=== PATIENT | male | born 2000 | race American Indian/Alaskan Native ===

== ENCOUNTER 2020-09-22 11:32 | Emergency (ER) | payer OTHER ==
[2020-09-22] MEDS ORDERED: SODIUM CHLORIDE 0.9% 1000 ML 1,000 ML IV ONE ×2 (11:45→15:29)
[2020-09-22] MEDS ORDERED: ONDANSETRON 4 MG/2 ML INJ IV ONE (11:45)
--- NOTE | 2020-09-22 12:24 | Emergency Department Report ---
ED General Adult HPI - General Chief complaint: Nausea/Vomiting/Diarrhea Stated complaint: N/V Time Seen by Provider: 09/22/20 11:42 Source: patient, EMS Mode of arrival: Stretcher Limitations: No Limitations - History of Present Illness Initial comments: This is a 20-year-old male who is a poor historian. He states that he was seen at [facility] yesterday and sent to [place]. Perhaps it was [facility]. In any case, he states he had a "situation with his mother" which led to his hospitalization. He denies being on any sort of psychiatric medications. He denies overdose. He was sent for vomiting from the psychiatric facility. I would assume he was cleared for psychiatric hospitalization and some nearby emergency department. At the time my encounter the patient denies abdominal pain. He states his nausea has subsided after Zofran. IV fluids are in progress. He denies diarrhea but states he does have a bowel movement. He denies any difficulty with urinating. -: hour(s) Associated Symptoms: denies other symptoms Treatments Prior to Arrival: none - Related Data Allergies Allergy/AdvReac Type Severity Reaction Status Date / Time No Known Allergies Allergy Verified 09/22/20 12:10 ED Review of Systems ROS: Stated complaint: N/V Other details as noted in HPI Constitutional: denies: chills, fever Eyes: denies: eye pain, vision change ENT: denies: ear pain, throat pain Respiratory: denies: cough, shortness of breath Cardiovascular: denies: chest pain, palpitations Endocrine: no symptoms reported Gastrointestinal: nausea, vomiting. denies: abdominal pain, diarrhea, hematemesis, melena, hematochezia Genitourinary: denies: urgency, dysuria Musculoskeletal: denies: back pain, arthralgia Skin: denies: rash, lesions Neurological: denies: headache, weakness, paresthesias Psychiatric: as per HPI (Patient is a poor historian. He seems to be voicing some history of homicidal ideation yesterday.) Hematological/Lymphatic: denies: easy bleeding, easy bruising ED Past Medical Hx - Past Medical History Hx Psychiatric Treatment: Yes (Patient denies being on any medication) - Surgical History Past Surgical History?: No - Social History Smoking Status: Former Smoker Substance Use Type: None ED Physical Exam - General Limitations: No Limitations General appearance: alert, in no apparent distress, other (Clinically dehydrated) - Head Head exam: Present: atraumatic, normocephalic - Eye Eye exam: Present: normal appearance, PERRL, EOMI. Absent: scleral icterus - ENT ENT exam: Present: mucous membranes dry - Neck Neck exam: Present: normal inspection. Absent: tenderness, meningismus - Respiratory Respiratory exam: Present: normal lung sounds bilaterally. Absent: respiratory distress - Cardiovascular Cardiovascular Exam: Present: normal rhythm, tachycardia. Absent: systolic murmur, diastolic murmur, rubs, gallop - GI/Abdominal GI/Abdominal exam: Present: soft, normal bowel sounds. Absent: distended, tenderness, guarding, rebound, rigid - Rectal Rectal exam: Present: deferred - Extremities Exam Extremities exam: Present: normal inspection - Back Exam Back exam: Present: normal inspection - Neurological Exam Neurological exam: Present: alert, oriented X3, CN II-XII intact. Absent: motor sensory deficit - Psychiatric Psychiatric exam: Present: normal mood, flat affect - Skin Skin exam: Present: warm, dry, intact, normal color. Absent: rash ED Course Vital Signs 09/22/20 09/22/20 09/22/20 11:56 12:00 12:04 Temperature 98.0 F Pulse Rate 89 88 88 Respiratory 21 16 Rate Blood Pressure 150/97 144/84 O2 Sat by Pulse 99 99 100 Oximetry 09/22/20 09/22/20 09/22/20 12:34 13:00 13:30 Temperature Pulse Rate 102 H 91 H 113 H Respiratory 22 20 20 Rate Blood Pressure 155/91 144/88 163/96 O2 Sat by Pulse 100 100 Oximetry 09/22/20 09/22/20 09/22/20 14:00 14:30 15:00 Temperature Pulse Rate Respiratory Rate Blood Pressure 163/96 163/96 163/96 O2 Sat by Pulse 99 100 Oximetry - Reevaluation(s) Reevaluation #1: Patient given bolus IV fluids. He is referred to the hospitalist Dr. Corral for further care and management. 09/22/20 15:27 ED Medical Decision Making - Lab Data Result diagrams: 09/22/20 12:04 09/22/20 12:04 Laboratory Results - last 24 hr 09/22/20 09/22/20 09/22/20 12:00 12:04 12:04 WBC 6.8 RBC 4.89 Hgb 14.1 Hct 41.3 MCV 84 MCH 29 MCHC 34 RDW 15.1 Plt Count 246 Lymph % (Auto) 21.4 [place] % (Auto) 14.0 H Eos % (Auto) 2.2 Baso % (Auto) 0.4 Lymph # (Auto) 1.5 [place] # (Auto) 1.0 H Eos # (Auto) 0.1 Baso # (Auto) 0.0 Seg Neutrophils % 62.0 Seg Neutrophils # 4.2 Sodium Potassium Chloride Carbon Dioxide Anion Gap BUN Creatinine Estimated GFR BUN/Creatinine Ratio Glucose Calcium Magnesium Total Bilirubin Direct Bilirubin Indirect Bilirubin AST ALT Alkaline Phosphatase Total Creatine Kinase CK-MB (CK-2) CK-MB (CK-2) Rel Index Total Protein Albumin Albumin/Globulin Ratio Lipase 22 Urine Color Straw Urine Turbidity Clear Urine pH 8.0 H Ur Specific [place] 1.008 Urine Protein <15 mg/dl Urine Glucose (UA) Neg Urine Ketones Neg Urine Blood Neg Urine Nitrite Neg Urine Bilirubin Neg Urine Urobilinogen 4.0 Ur Leukocyte Esterase Neg Urine WBC (Auto) 1.0 Urine RBC (Auto) 2.0 Salicylates Acetaminophen 09/22/20 09/22/20 09/22/20 12:04 13:09 13:09 WBC RBC Hgb Hct MCV MCH MCHC RDW Plt Count Lymph % (Auto) [place] % (Auto) Eos % (Auto) Baso % (Auto) Lymph # (Auto) [place] # (Auto) Eos # (Auto) Baso # (Auto) Seg Neutrophils % Seg Neutrophils # Sodium 140 Potassium 4.1 Chloride 102.1 Carbon Dioxide 28 Anion Gap 14 BUN 7 L Creatinine 0.9 Estimated GFR > 60 BUN/Creatinine Ratio 8 Glucose 97 Calcium 9.2 Magnesium 2.30 Total Bilirubin 0.30 Direct Bilirubin < 0.2 Indirect Bilirubin 0.1 AST 102 H ALT 32 Alkaline Phosphatase 89 Total Creatine Kinase CK-MB (CK-2) CK-MB (CK-2) Rel Index Total Protein 7.6 Albumin 4.6 Albumin/Globulin Ratio 1.5 Lipase Urine Color Urine Turbidity Urine pH Ur Specific [place] Urine Protein Urine Glucose (UA) Urine Ketones Urine Blood Urine Nitrite Urine Bilirubin Urine Urobilinogen Ur Leukocyte Esterase Urine WBC (Auto) Urine RBC (Auto) Salicylates < 0.3 L Acetaminophen 5.0 L 06/05/21 13:09 WBC RBC Hgb Hct MCV MCH MCHC RDW Plt Count Lymph % (Auto) [place] % (Auto) Eos % (Auto) Baso % (Auto) Lymph # (Auto) [place] # (Auto) Eos # (Auto) Baso # (Auto) Seg Neutrophils % Seg Neutrophils # Sodium Potassium Chloride Carbon Dioxide Anion Gap BUN Creatinine Estimated GFR BUN/Creatinine Ratio Glucose Calcium Magnesium Total Bilirubin Direct Bilirubin Indirect Bilirubin AST ALT Alkaline Phosphatase Total Creatine Kinase 6633 H CK-MB (CK-2) 7.5 H CK-MB (CK-2) Rel Index 0.1 Total Protein Albumin Albumin/Globulin Ratio Lipase Urine Color Urine Turbidity Urine pH Ur Specific [place] Urine Protein Urine Glucose (UA) Urine Ketones Urine Blood Urine Nitrite Urine Bilirubin Urine Urobilinogen Ur Leukocyte Esterase Urine WBC (Auto) Urine RBC (Auto) Salicylates Acetaminophen Critical care attestation.: If time is entered above; I have spent that time in minutes in the direct care of this critically ill patient, excluding procedure time. ED Disposition Clinical Impression: Rhabdomyolysis Qualifiers: Rhabdomyolysis type: non-traumatic Qualified Code(s): M62.82 - Rhabdomyolysis Vomiting Qualifiers: Vomiting type: unspecified Vomiting Intractability: non-intractable Nausea presence: unspecified Qualified Code(s): R11.10 - Vomiting, unspecified Disposition: DC-01 TO HOME OR SELFCARE Is pt being admited?: No Does the pt Need Aspirin: No Condition: Stable Referrals: PRIMARY CARE, [Primary Care Provider] - 3-5 Days Time of Disposition: 15:28
[2020-09-22 12:31] LABS: Bilirubin,Urine NEG (Negative); Blood,Urine NEG (Negative); Color,Urine Straw (Yellow); Protein,Urine <15 mg/dL mg/dL (Negative)
[2020-09-22 12:51] LABS: Basophils % (Auto) 0.4 % (0.0-1.8); Eosinophils # (Auto) 0.1 K/mm3 (0.0-0.4); Eosinophils % (Auto) 2.2 % (0.0-4.3); Hematocrit 41.3 % (35.5-45.6); Hemoglobin 14.1 gm/dl (11.8-15.2); Lymphocytes # (Auto) 1.5 K/mm3 (1.2-5.4); Lymphocytes % (Auto) 21.4 % (13.4-35.0); Mean Corpuscular HGB Conc 34 % (32-34); Mean Corpuscular Volume 84 fl (84-94); Platelet Count 246 K/mm3 (140-440); Red Blood Count 4.89 M/mm3 (3.65-5.03); Red Cell Distribution Width 15.1 % (13.2-15.2)
[2020-09-22 12:58] LABS: Alanine Aminotransferase 32 units/L (7-56); Albumin 4.6 g/dL (3.9-5); BUN/Creatinine Ratio 8; Blood Urea Nitrogen 7 mg/dL (9-20); Calcium 9.2 mg/dL (8.4-10.2); Hemolysis Index 4
[2020-09-22 13:04] LABS: Bilirubin,Direct < 0.2 mg/dL (0-0.2)
[2020-09-22 14:04] LABS: Creatine Kinase MB 7.5 ng/mL (0.0-4.0)
--- NOTE | 2020-09-22 16:02 | Event Note ---
Date: 09/22/20 Patient sent from [facility] for nausea and vomiting. Nausea and vomiting is resolved Abdominal pain is resolved Patient has incidental finding of high creatinine kinase of 6633 Patient to get 2 L of normal saline and recheck CPK If CPK is downtrending patient to be discharged back to [facility] Repeat CPK Patient have increase fluid intake and repeat CK after 48 hours.
[2020-09-22 18:01] VITALS: BP 140/88
== END 2020-09-22 18:01 | disposition home or self-care (01) ==
LOC: ED 11:32
DX: M62.82 Rhabdomyolysis (principal); R11.10 Vomiting, unspecified; Z87.891 Personal history of nicotine dependence; Z79.899 Other long term (current) drug therapy
CPT/HCPCS: 36415; 80048; 80076; 81001; 82550; 82553; 83690; 83735; 85025; 96361; 96374; 99284; J2405; J7030; 80320; G0480